=== PATIENT | female | born 1990 | race Caucasian/White ===

== ENCOUNTER 2017-01-27 08:27 | Emergency (ER) | payer SELFPAY ==
[~2017-01-27] VITALS: Ht 165.1 cm; Wt 110.0 kg
[~2017-01-27 08:27] MED LIST: FLEXERIL PO; NAPROSYN500 MG PO; ULTRAM50 M1 PO; ULTRAM50 MG PO; ZITHROMAX250 MG PO; ZOFRAN ODT4 MG PO
[2017-01-27] MEDS ORDERED: PREDNISONE10 MG PO (08:40)
[2017-01-27] MEDS ORDERED: CIMETIDINE400 M1 PO (08:40)
[2017-01-27] MEDS ORDERED: BENADRYL 50MG C50 MG PO (08:40)
[2017-01-27 08:50] VITALS: BP 121/75
== END 2017-01-27 09:08 | disposition home or self-care (01) | DRG 916 ==
LOC: ED 08:27
DX: T78.40XA Allergy, unspecified, initial encounter (principal); H05.223 Edema of bilateral orbit

== ENCOUNTER 2017-01-31 03:01 | Emergency (ER) | payer SELFPAY ==
[~2017-01-31] VITALS: Ht 165.1 cm; Wt 111.0 kg
[~2017-01-31 03:01] MED LIST changes: +BENADRYL 50MG C50 MG PO; +CIMETIDINE400 M1 PO; +PREDNISONE10 MG PO
[2017-01-31 05:11] VITALS: BP 115/73
== END 2017-01-31 05:17 | disposition home or self-care (01) | DRG 607 ==
LOC: ED 03:01
DX: L50.9 Urticaria, unspecified (principal)

== ENCOUNTER 2017-02-03 18:09 | Emergency (ER) | payer SELFPAY ==
[~2017-02-03] VITALS: Ht 165.1 cm; Wt 101.0 kg
[2017-02-03 18:49] LABS: HEMATOCRIT 43.9 % (37.0-47.0); HEMOGLOBIN 15.1 g/dl (12.0-16.0); IMMATURE GRANULOCYTES 0.9 % (0.0-1.0); MEAN CELL VOLUME 84.7 fL CALC (80.0-100.0); MEAN CORPUSCULAR HGB 29.2 pG CALC (26.0-32.0); MEAN CORPUSCULAR HGB CONC 34.4 g/L CALC (32.0-36.0); NEUT# 8.84 thou/uL (2.00-7.15); RED BLOOD COUNT 5.18 mill/uL (4.20-5.60); RED CELL DISTRI WIDTH 12.9 % (11.5-15.5)
[2017-02-03 19:01] LABS: ALBUMIN 4.5 g/dL (3.2-5.0); ALKALINE PHOSPHATASE 71 u/l (38-126); AMYLASE 67 u/l (30-110); ANION GAP 16 (6-22 (CALC)); BILIRUBIN, TOTAL 0.8 mg/dL (0.0-1.4); BUN 11 mg/dL (7-17); BUN/CREATININE RATIO 19 (12-20 (CALC)); CARBON DIOXIDE 25 mmol/l (22-30); CHLORIDE 103 mmol/l (95-108); CREATININE 0.6 mg/dL (0.5-1.0); GFR > 60 ML/MIN (>=60 (CALC)); GFR FOR AFR.AMER. > 60 ML/MIN (>=60 (CALC)); GLUCOSE 95 mg/dL (65-105); LIPASE 88 u/l (23-300); SGOT/AST 37 u/l (14-36); SGPT/ALT 78 u/l (9-52); SODIUM 139 mmol/l (137-146); TOTAL PROTEIN 7.7 g/dL (6.3-8.2)
[2017-02-03] MEDS ORDERED: CIPROFLOXACN500 MG PO (19:28)
[2017-02-03] MEDS ORDERED: IMODIUM2 MG PO (19:28)
[2017-02-03] MEDS ORDERED: ZOFRAN ODT4 MG PO (19:28)
[2017-02-03] MEDS ORDERED: NEXIUM40 M1 PO (19:28)
[2017-02-03 19:35] VITALS: BP 125/71
== END 2017-02-03 19:35 | disposition home or self-care (01) | DRG 392 ==
LOC: ED 18:09
PROVIDERS: Emergency Medicine
DX: R10.13 Epigastric pain (principal); K52.9 Noninfective gastroenteritis and colitis, unspecified; R11.2 Nausea with vomiting, unspecified
CPT/HCPCS: S0164